=== PATIENT | female | born 1990 | race African-American/Black ===

== ENCOUNTER 2017-09-23 13:30 | Emergency (ER) | payer SELFPAY | END 2017-09-23 16:30 | disposition home or self-care (01) | LOC: ERS 13:30 | DX: J40 Bronchitis, not specified as acute or chronic (principal); J34.89 Other specified disorders of nose and nasal sinuses; I10 Essential (primary) hypertension; F17.210 Nicotine dependence, cigarettes, uncomplicated; Z71.6 Tobacco abuse counseling | CPT/HCPCS: 99406 ==

== ENCOUNTER 2017-10-03 19:30 | Emergency (ER) | payer SELFPAY | END 2017-10-03 21:05 | disposition home or self-care (01) | LOC: ERS 19:30 | DX: T19.2XXA Foreign body in vulva and vagina, initial encounter (principal); I10 Essential (primary) hypertension; F17.210 Nicotine dependence, cigarettes, uncomplicated | CPT/HCPCS: 99283 ==

== ENCOUNTER 2018-01-28 16:05 | Emergency (ER) | payer MEDICAID, SELFPAY ==
[2018-01-28 17:32] LABS: Bilirubin Negative (Negative); Blood, Urine Negative (Negative); Clarity CLOUDY (Clear); Glucose, Urine (Dipstick) Negative (Negative); Leukocyte Moderate (Negative); Nitrite Negative (Negative); Protein, Urine (Dipstick) Negative (Neg-Trace); Specific Gravity, Urine 1.019 (1.002-1.036); pH, Urine 6.5 (5.0-9.0)
[2018-01-28 17:34] LABS: Bacteria/HPF 2+ HPF (None Seen); Hyaline Casts/LPF 0-3 HYALINE CAST LPF (0-3 Hyaline); Pathc Cast-AUWi Flag 0.72 (0-2.49); WBC/HPF 21-50 HPF (0-3)
[2018-01-28 17:35] LABS: Pregnancy Test - Urine (BHCG) POSITIVE (Negative); Pregu Control Background? CLEAR/WHITE (CLR/WHITE); Pregu Control Bar Appear? YES (CONTROL BAR); Specific Gravity 1.019 (1.002-1.036)
== END 2018-01-28 18:07 | disposition home or self-care (01) ==
LOC: ERS 16:05
DX: O99.321 Drug use complicating pregnancy, first trimester (principal); F14.10 Cocaine abuse, uncomplicated; O23.41 Unspecified infection of urinary tract in pregnancy, first trimester; O99.331 Smoking (tobacco) complicating pregnancy, first trimester; F17.210 Nicotine dependence, cigarettes, uncomplicated; Z3A.12 12 weeks gestation of pregnancy
CPT/HCPCS: 81003; 81015; 81025; 87804; 99283

== ENCOUNTER 2018-07-14 16:02 | Day surgery (SDC) | payer OTHER ==
[2018-07-14 17:00] VITALS: BMI 40.2
[2018-07-14 17:16] LABS: Bilirubin Negative (Negative); Blood, Urine Small (Negative); Clarity CLEAR (Clear); Glucose, Urine (Dipstick) Negative (Negative); Leukocyte Negative (Negative); Nitrite Negative (Negative); Protein, Urine (Dipstick) Negative (Neg-Trace); pH, Urine 6.5 (5.0-9.0)
[2018-07-14 17:18] LABS: Bacteria/HPF None Seen HPF (None Seen); Hyaline Casts/LPF 4-6 HYALINE CAST LPF (0-3 Hyaline); Pathc Cast-AUWi Flag 0.81 (0-2.49); Squamous Epithelial 0-3 HPF (0-3); WBC/HPF 0-3 HPF (0-3)
[2018-07-14 17:24] LABS: Urine Culture Reflex No No
[2018-07-14 17:26] LABS: Medtox Reader # READER 4; Phencyclidine (PCP) Not Detected (NotDetected); THC/Cannabinoid Screen Not Detected (NotDetected)
[2018-07-14 17:27] LABS: Amphetamine Not Detected (NotDetected); Barbiturates Screen Not Detected (NotDetected); Benzodiazepine Screen Not Detected (NotDetected); Cocaine Metabolite Screen Detected (NotDetected); Medtox Control Line Valid? VALID (VALID); Methadone Not Detected (NotDetected); Methamphetamine Not Detected (NotDetected); Opiate Screen Not Detected (NotDetected); Oxycodone Screen Not Detected (NotDetected); Tricyclic Screen Not Detected (NotDetected)
[2018-07-14 17:40] LABS: FFN Internal QC Analyzer PASS (PASS); FFN Internal QC Cassette PASS (PASS); Fetal Fibronectin Negative (Negative)
--- NOTE | 2018-07-14 23:48 | ER ---
DATE OF SERVICE: 07/14/2018 PRIMARY LABORATORY ASSOCIATE: None. HISTORY OF PRESENT ILLNESS: The patient is a 27-year-old, G4, P3, female, who is reporting a about 7-1/2 months, presenting to Labor and Delivery with contractions. She reports that she has had her three other children premature at least a month or two premature, and feels like she is in labor now. The patient reports she has been having abdominal tightness, more pelvic tightness, and pressure about every 4 to 5 minutes at 5:30 this morning, and reports the pain is 8/10. The patient denies cramps, upper abdominal or back pain. She does have some nausea and vomiting, and reports positive movement. The patient reports overall fatigue, but denies fever or congestion. She denies neck pain or sore throat or vision changes. She denies heat or cold intolerance or skin changes. She denies palpitations or chest pain. Does report lower extremity swelling. Reports baseline shortness of breath with cough. Denies reports of abdominal pain and cramping. Denies discharge or bleeding. Denies overall weakness, muscle weakness, or joint weakness. The patient does report headaches on occasion. Denies skin rashes. Denies easy bruises. The patient at 30 weeks based on . PAST MEDICAL HISTORY: History of labor. PAST SURGICAL HISTORY: Cholecystectomy. MEDICATIONS: None. ALLERGIES: NO KNOWN DRUG ALLERGIES. SOCIAL HISTORY: The patient does report positive tobacco use. Denies drug use. Reports recently moving about 2 weeks ago from [place], relocating here to family. Reports her last visit with her doctor was 2 weeks ago and has intentions of seeking obstetric care with [facility]. OBSTETRIC LABORATORY DATA: Unavailable. REVIEW OF SYSTEMS: Per HPI. PHYSICAL EXAMINATION: VITAL SIGNS: Blood pressure 125/72, heart rate of 88, and respiratory rate of 18. GENERAL: She appears to be in no acute distress. She is alert, oriented, cooperative, pleasant to interact with. HEAD: Normocephalic, atraumatic. LUNGS: Clear to auscultation bilaterally. HEART: Regular rate and rhythm. ABDOMEN: Soft, nontender. EXTREMITIES: Nontender, nonedematous. CERVIX: Fingertip, 50% effaced, -3 station. heart tracing and NST performed for abdominal pain and , baseline is noted to be in the 130s with moderate long-term variability, positive 15 x 15 accelerations, no decelerations. Tocometer is not picking up any contraction pattern. fibronectin collected and negative. Urine drug screen positive for cocaine. Urinalysis, specific gravity of 1.010, negative protein and glucose, positive for ketones, small for blood, nitrite negative, leukocyte esterase negative, white blood cells negative, squamous cells negative, no bacteria seen. ASSESSMENT AND PLAN: The patient is a 27-year-old female with an intrauterine reported at about 30 weeks gestation for the patient, presenting with abdominal pain. There is no evidence of labor at this time with a closed cervix, negative fibronectin, and no consistent contraction pattern seen on her heart and tocometer tracing. We did discuss her positive cocaine results on drug screen, which she admits to handling cocaine, but has not used it, but reports that she does handle it with the intention of making money. The patient, at that time, also reported that she left [facility] for this reason and hopes to get away from it. We spent about 10 minutes discussing her situation and counseling her on the importance of committing and being diligent from removing herself from that environment. We also encouraged the patient to seek further training as she just has a high school diploma, so that she can qualify for a better paying job than what she otherwise could obtain through legal route. The patient has been introduced to the family medicine residency program and an effort to establish care with them. There is no evidence of labor at this time, and the patient is being discharged home. Fetus is category 1 tracing and reactive NST. Job ID: [id number]
== END 2018-07-14 19:00 | disposition home or self-care (01) ==
LOC: L&D/OP 16:02
PROVIDERS: ATTEND Obstetrics & Gynecology
DX: O47.1 False labor at or after 37 completed weeks of gestation (principal); O99.333 Smoking (tobacco) complicating pregnancy, third trimester; F17.200 Nicotine dependence, unspecified, uncomplicated; Z3A.30 30 weeks gestation of pregnancy; Z90.49 Acquired absence of other specified parts of digestive tract; Z87.51 Personal history of pre-term labor
CPT/HCPCS: 51701; 59025; 80306; 81001; 82731; 99284

== ENCOUNTER 2018-07-30 18:36 | Day surgery (SDC) | payer OTHER ==
[2018-07-30 19:13] VITALS: BMI 37.6
[2018-07-30] MEDS ORDERED: Betamet Acet/Betamet Na Ph 30 MG/5 ML VIAL IM SCH (19:15)
[2018-07-30] MEDS ORDERED: Azithromycin 1,000 MG in Sodium Chloride 0.9% 500 ML IVPB SCH (19:30)
--- NOTE | 2018-07-30 19:57 | PDOC.FPROB ---
Addendum entered and electronically signed by Nadiya Stone MD 07/30/18 21: 17: Upper level addendum: Pt is a 27 yo female @ 34.4 by LMP/1T US (per pt history) with history of cocaine abuse and poor care evaluated for PPROM. 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 Sterile spec performed which showed large amount of pooling in vaginal vault. Cervix closed. No lesions/bleeding. Scant discharge. Infectious workup started. Cat I strip/no contractions. Will order 1T labs. GBS prophylaxis and Steroids given. Will order BPP/Growth. Will attempt to request records from pt's previous OB provider. Will arrange transfer due to NICU being at capacity. Original Note: FMR OB H&P: HPI - History of Present Illness Chief Complaint: "water broke" Indentification: History of Present Illness: 27yo at 34.3w EGA by LMP and 1TUS (by her hx, no documentation available ) presents for evaluation of ruptured membranes. Pt was in HEB 30min prior to presentation when she noticed a persistent leakage of clear fluid. Pt states she is positve she was not urinating and that a large volume of liquid continued to leak out over several minutes soaking her pants. Otherwise pt reports to be doing well. Denies vaginal bleeding, no discharge, reports non painful contractions every 30-60min and reports good mvmt. FMR OB H&P: Current - Care : 5 Para: [id number] Gestational age: 34.3w by hx of LMP and 1TUS(pt decent historian) - OB Labs Blood type: unknown RH: unknown Antibody Screen: unknown HIV: unknown RPR: unknown HepBsAg: unknown Quad screen: unknown Urine drug screen: positive (At last triage 1 week ago, +cocaine.) FMR OB H&P: History - Past Medical History PMH: sickle cell trait - OB History OB History: 3 vaginal deliveries - Surgical History Sx History: cholecystectomy - Social History Social History: Smokes 1 pack per day, denies alcohol and drugs. Endorses dealing drugs but not using. Tested positive for cocaine 1 week ago by UDS - Family History Family History: DM FMR OB H&P: Medications - Current Home Medications: Medication Instructions Recorded Confirmed Type 21/Iron Fu/Folic Acid 1 tablet PO DAILY 07/30/18 07/30/18 History [ Complete Caplet] Allergies/Adverse Reactions: Allergies Allergy/AdvReac Type Severity Reaction Status Date / Time No Known Drug Allergies Allergy Verified 07/30/18 19:14 FMR OB H&P: ROS - Review of Systems General: denies: fever/chills, fatigue ENT: denies: nasal congestion, rhinorrhea Cardiovascular: denies: chest pain, palpitation Respiratory: denies: cough, congestion, shortness of breath Gastrointestinal: denies: abdominal pain, indigestion Genitourinary (Female): denies: incontinence, dysuria Musculoskeletal: denies: pain, stiffness Neurologic: denies: numbness, syncope, seizures Integumentary: denies: rash, lesions Endocrine: denies: cold intolerance, heat intolerance Hematologic/Lymphatic: denies: prolonged or excessive bleeding Psychological: denies: depression, anxiety FMR OB H&P: Vital Signs - Maternal Vital signs: reviewed and WNL - Heart Tones Baseline: 140 Variability: moderate Category: category 1 FMR OB H&P: Physical Exam - Physical Exam General: NAD, awake, alert and oriented HEENT: EOMI, grossly normal vision, grossly normal hearing Neck: supple, trachea midline Chest: non-tender to palpation Breast: symmetric Heart: RRR, normal S1/S2 General: CTAB, no respiratory distress Abdomen: soft, gravid Musculoskeletal: pulses present, no atrophy Neurological: no tremor, no focal deficit Skin: no rash, good tugor Lymphatic: no purpura, no petechia Psychiatric: intact recent and remote memory, normal mood and affect - Pelvic Exam Vulva: normal hair distribution, no blood Deviation from normal: pooling of clear fluid inferior to cervical os, fluid leaking from os SVE: cervical os closed, no bleeding, no lesions FMR OB H&P: A/P - Problem List (1) Polysubstance abuse Status: Acute Code(s): F19.10 - OTHER PSYCHOACTIVE SUBSTANCE ABUSE, UNCOMPLICATED (2) PROM (premature rupture of membranes) Status: Acute Code(s): O42.90 - NATY ROM, 7TH0 BETW RUPT & ONST LABR, UNSP WEEKS OF GEST Qualifiers: PROM onset of labor timing: onset of labor more than 24 hours following rupture PROM gestational age: full term Qualified Code(s): O42.12 - Full- term premature rupture of membranes, onset of labor more than 24 hours following rupture Comment: ROM on 03/08 no s/s of infection today Discussion: PPROM in a 27yo at 34.3w EGA A- Pt hx and exam highly suspicious of ruptured membranes. Pt has no recollection of detailed care and is unsure of where she went in [place] for her care. No labwork is currently available. By hx course has been uncomplicated. 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 Lauren and Bertha I agree with the History, Examination, Assessment and Plan documented above with any addition or exceptions noted below. 27 yo female at 34.3 wks presents for evaluation of ROM Patient with poor care, presents for evaluation of ROM at 1830 today. No VB. +FM. Reports use of cocaine throughout . Past history of PPROM and PTD x 2. No use of 17-OHP this . VS reviewed. FHT reactive. No contractions. SVE: pooling. Os visually closed. No blood. Swabs taken. 1. PPROM at 34.3 wks: Start GBS ppx (status unknown). FLM steroids started. Infectious workup pending. Cephalic. EFW = 2479g. BPP 12/02. ANDRY remains WNL at 17 cm. AMNIsure positive. Unable to keep patient in hospital due to over capacity of NICU. Patient to be transferred to [place]. Patient not currently in active labor. 2. sIUP: No records available. Last seen by OB provider in 2T. OB labs ordered. 3. Iron def anemia: Will need supplemental iron. Risk for pp complications. 4. Cocaine use during : UDS positive. Will need CPS contacted. Will need urine and mec on . Likely cause of ROM. 5. hx of PPROM and PTD: Patient not on 17-ohp. Indicated in future pregnancies 6. BMI 38: Lifestyle modifications. Encourage breast feeding if patient will abstain from drug use. 7. GBS unknown: Swab pending. Started on Amp for ppx. 8. Incomplete care Transfer to [place] for management due to unavailable space in NICU. Gene
[2018-07-30 20:19] LABS: Amnisure Internal Control QC ACCEPTABLE (ACCEPTABLE); Amnisure Test RUPTURE DETECTED (No Rupture)
[2018-07-30 21:22] LABS: #Eosinphils 0.1 thou/uL (0.0-0.7); #Lymphocytes 1.2 thou/uL (1.20-3.40); #Monocytes 0.4 thou/uL (0.11-0.59); #Neutrophils 4.8 thou/uL (1.40-6.50); %Basophils 0.1 % (0.0-1.0); %Eosinophils 1.2 % (0.0-10.0); %Lymphocytes 18.3 % (21.0-51.0); %Monocytes 6.7 % (0.0-10.0); %Neutrophils 73.8 % (42.0-75.0); Hemoglobin 8.5 g/dL (12.0-16.0); Mean Corpuscular HGB CONC 32.1 g/dL (32.0-36.0); Mean Corpuscular Hemoglobin 24.4 pg (27.0-31.0); Mean Corpuscular Volume 76.1 fL (78.0-98.0); Mean Platelet Volume 7.4 fL (7.4-10.4); Platelet Count 200 thou/uL (130-400); RBC Distribution Width 14.6 % (11.5-14.5); Red Blood Cell (RBC) Count 3.47 mill/uL (4.20-5.40); White Blood Cell (WBC) Count 6.5 thou/uL (4.8-10.8)
[2018-07-30 21:29] LABS: Hemoglobin A1c 3.9 % (4.0-6.0)
--- NOTE | 2018-07-30 21:39 | ULT ---
ULTRASOUND OBSTETRICAL COMPLETE: 07/30/18 at 8:45 p.m. HISTORY: 27-year-old female with premature rupture of membranes at 34 weeks gestation. Evaluate weight, position and amniotic fluid volume. FINDINGS: number: Teague. lie: Vertex. Maternal cervix: Obscured. Placenta: Maternal right lateral. No placenta previa. Amniotic fluid volume: ANDRY = 17 cm. heart rate: 132 bpm The following anatomy is visualized, with no evidence of anomalies: Thoracic spine, sacrum, bladder, bilateral kidneys, C-spine, L-spine, four chamber heart, stomach. The rest of the anatomy is not well visualized. biometry: Head circumference (HC): 30.9 cm 34w 4d Biparietal diameter (BPD): 8.4 cm 33w 5d Abdominal circumference (AC): 30.8 cm 34w 6d Femur length (FL): 6.8 cm 34w 5d Average ultrasound age (AUA): 34w 3d Estimated date of delivery (SUNNY): 09/07/2018 Last menstrual period (LMP): 12/01/2017 Gestational age by LMP: 34w 3d Estimated weight (EFW): 2479 g +/- 367 g (5 lb. 7 oz +/- 13 oz). IMPRESSION: 1. Live third trimester intrauterine gestation. 2. Estimated gestational age of 34 weeks, 3 days. 3. Vertex lie. PARAG Grijalva POS: TPC
--- NOTE | 2018-07-30 21:40 | ULT ---
ULTRASOUND BIOPHYSICAL PROFILE: 07/30/18 at 8:46 p.m. HISTORY: 27-year-old female in third trimester with premature rupture of membranes at 34 weeks gesta tion. FINDINGS: breathin tone: 2 movement: 2 Amniotic fluid volume: 2 IMPRESSION: Biophysical profile score of 6/8, excluding the non-stress test. JN R POS: TPC
[2018-07-30 21:45] LABS: Bilirubin Small (Negative); Blood, Urine Small (Negative); Clarity CLEAR (Clear); Glucose, Urine (Dipstick) Negative (Negative); Leukocyte Negative (Negative); Nitrite Negative (Negative); Protein, Urine (Dipstick) Negative (Neg-Trace); Specific Gravity, Urine 1.013 (1.002-1.036); pH, Urine 6.5 (5.0-9.0)
[2018-07-30 21:47] LABS: Pathc Cast-AUWi Flag 3.67 (0-2.49); WBC/HPF 0-3 HPF (0-3)
[2018-07-30 21:53] LABS: Amphetamine Not Detected (NotDetected); Barbiturates Screen Not Detected (NotDetected); Benzodiazepine Screen Not Detected (NotDetected); Cocaine Metabolite Screen Detected (NotDetected); Medtox Control Line Valid? VALID (VALID); Medtox Reader # READER 4; Methadone Not Detected (NotDetected); Methamphetamine Not Detected (NotDetected); Opiate Screen Not Detected (NotDetected); Oxycodone Screen Not Detected (NotDetected); Phencyclidine (PCP) Not Detected (NotDetected); THC/Cannabinoid Screen Not Detected (NotDetected); Tricyclic Screen Not Detected (NotDetected)
[2018-07-30 21:55] LABS: Syphilis Antibody Nonreactive (Nonreactive); Syphilis Antibody Index 0.05 S/CO (<1.00 Non-Reactive)
[2018-07-30 21:56] LABS: Bacteria/HPF Rare-Few HPF (None Seen); Hyaline Casts/LPF 4-6 HYALINE CAST LPF (0-3 Hyaline)
[2018-07-30 22:04] LABS: ALT (SGPT) 12 U/L (8-55); AST (SGOT) 14 U/L (5-34); Albumin 3.1 g/dL (3.5-5.0); Alkaline Phosphatase 107 U/L (40-150); Anion Gap 8 mmol/L (10-20); BUN (Urea Nitrogen) Less than 4 mg/dL (7.0-18.7); Bilirubin, Total 0.5 mg/dL (0.2-1.2); Calc. Creatinine Clearance 210 mL/min (70-130); Calcium 8.9 mg/dL (7.8-10.44); Carbon Dioxide 25 mmol/L (22-29); Chloride 106 mmol/L (98-107); Estimated GFR-MDRD Greater than 90; Globulin 3.4 g/dL (2.4-3.5); Glucose 73 mg/dL (70-105); Potassium 3.4 mmol/L (3.5-5.1); Protein, Total 6.5 g/dL (6.0-8.3); Sodium 136 mmol/L (136-145)
[2018-07-30 22:45] LABS: HBSAg Index 0.28 S/CO (0-0.99); HIV (1/2) Antibody/Antigen Non-Reactive (NonReactive); HIV 1/2 INDEX 0.19 S/CO (<1.00); Hep B Surf Ag Non-Reactive S/CO (NonReactive); Hep C IgG Ab Non-Reactive (NonReactive); Hep C Index 0.15 S/CO (0-0.79)
[2018-07-30] MEDS ORDERED: AMPicillin 2 GM in Sodium Chloride 0.9% 100 ML IVPB SCH (23:59)
--- NOTE | 2018-07-31 12:18 | DIS ---
DATE OF ADMISSION: 07/30/2018 DATE OF DISCHARGE: 07/30/2018 DISCHARGE ATTENDING: Dianna Fernando MD. RESIDENT: Nadiya Stone MD, PGY-III. ADMITTING DIAGNOSES: 1. premature rupture of membranes. 2. intrauterine . 3. Poor care. 4. History of cocaine abuse. HISTORY OF PRESENT ILLNESS: The patient is a 27-year-old G5, P0-3-1-3 at 34.4 weeks by last menstrual period, consistent with first trimester sono per patient's history, who presented to Labor and Delivery with reported large gush of fluid 30 minutes prior to arrival, concerning for rupture of membranes. Sterile spec was performed, which showed a large amount of pooling in the vaginal vault. The patient's cervix was closed on exam with no lesions or bleeding. Scant discharge noted. AmniSure test was positive. An infectious workup was started to include Gonorrhea, Chlamydia, urinalysis and vaginitis panel. First trimester labs were ordered. GBS swab was obtained, and GBS prophylaxis was initiated. The patient was also received a dose of betamethasone prior to transfer for lung maturity. BPP and growth scans were performed. Growth scan did confirm the patient's dates and biophysical profile was 6/8 excluding the nonstress test which was reactive. Due to the inhouse NICU being at capacity, transfer was initiated, and ultimately, the patient was transferred to [facility] in [place]. DISCHARGE INSTRUCTIONS: 1. Location: [facility], [facility]. 2. Followup: The patient is to follow up . 3. Disposition: Stable. Job ID: [id number]
[2018-08-02 11:57] LABS: Chlamydia by PCR Not Detected (NotDetected); GC by PCR Not Detected (NotDetected)
== END 2018-07-30 23:25 | disposition short-term general hospital (02) ==
LOC: L&D/OP 18:36
PROVIDERS: ATTEND Student in an Organized Health Care Education/Training Program
DX: O42.913 Preterm premature rupture of membranes, unspecified as to length of time between rupture and onset of labor, third trimester (principal); O99.013 Anemia complicating pregnancy, third trimester; D50.9 Iron deficiency anemia, unspecified; D57.3 Sickle-cell trait; O99.323 Drug use complicating pregnancy, third trimester; F14.90 Cocaine use, unspecified, uncomplicated; O99.333 Smoking (tobacco) complicating pregnancy, third trimester; F17.210 Nicotine dependence, cigarettes, uncomplicated; O09.33 Supervision of pregnancy with insufficient antenatal care, third trimester; Z3A.34 34 weeks gestation of pregnancy; Z79.899 Other long term (current) drug therapy
CPT/HCPCS: 36415; 76815; 76819; 80053; 80306; 81003; 81015; 83036; 84112; 85025; 86762; 86780; 86803; 86850; 86900; 86901; 87077; 87081; 87086; 87340; 87389; 87480; 87510; 87660; 99285; J0290; J0456; J0702; J7050

== ENCOUNTER 2020-05-15 16:09 | Emergency (ER) | payer OTHER ==
[2020-05-15 16:32] LABS: #Eosinphils 0.2 thou/uL (0.0-0.7); #Lymphocytes 2.1 thou/uL (1.20-3.40); #Monocytes 0.3 thou/uL (0.11-0.59); #Neutrophils 3.8 thou/uL (1.40-6.50); %Basophils 0.5 % (0.0-1.0); %Eosinophils 2.8 % (0.0-10.0); %Lymphocytes 32.6 % (21.0-51.0); %Monocytes 4.9 % (0.0-10.0); %Neutrophils 59.2 % (42.0-75.0); Hemoglobin 11.7 g/dL (12.0-16.0); Mean Corpuscular HGB CONC 32.9 g/dL (32.0-36.0); Mean Corpuscular Hemoglobin 25.8 pg (27.0-31.0); Mean Corpuscular Volume 78.5 fL (78.0-98.0); Mean Platelet Volume 6.9 fL (7.4-10.4); Platelet Count 411 thou/uL (130-400); RBC Distribution Width 14.1 % (11.5-14.5); Red Blood Cell (RBC) Count 4.53 mill/uL (4.20-5.40); White Blood Cell (WBC) Count 6.4 thou/uL (4.8-10.8)
[2020-05-15] MEDS ORDERED: Acetaminophen 500 MG TAB ONE (17:11)
--- NOTE | 2020-05-15 17:59 | ULT ---
PELVIC ULTRASOUND: 05/15/20 HISTORY: Pelvic pain. Real time imaging of the pelvis was obtained both transabdominally as well as with an endovaginal pro be. This shows a uterus measuring 4.4 x 5.4 x 9 cm. Endometrium is in the 7 mm range. Right and left adnexa are normal in size and appearance. COLOR DOPPLER EVALUATION WITH SPECTRAL ANALYSIS: Normal flow is shown to both adnexa. A small involuting follicle is noted on the left ovary. IMPRESSION: Essentially unremarkable pelvic ultrasound. POS: OFF
== END 2020-05-15 18:45 | disposition home or self-care (01) ==
LOC: ERS 16:09
DX: O20.0 Threatened abortion (principal); O10.911 Unspecified pre-existing hypertension complicating pregnancy, first trimester; Z3A.01 Less than 8 weeks gestation of pregnancy; O99.331 Smoking (tobacco) complicating pregnancy, first trimester; F17.210 Nicotine dependence, cigarettes, uncomplicated
CPT/HCPCS: 36415; 76856; 81003; 81015; 84702; 85025; 86900; 86901

== ENCOUNTER 2020-10-13 11:47 | Inpatient (IN) | payer OTHER ==
[~2020-10-13 11:47] MED LIST: Iopamidol-370 76% 500 ML 1 ML ONE
[2020-10-13] MEDS ORDERED: Magnesium 2 GM/50 ML BAG (IN WATER) ONE ×2 (11:56→11:58)
[2020-10-13] MEDS ORDERED: Rocuronium Bromide 10 MG/ML (10ML VIAL) ONE (11:56)
[2020-10-13] MEDS ORDERED: Ondansetron PF 4 MG/2 ML Vial ONE (12:44)
[2020-10-13 12:59] LABS: #Eosinphils 0.2 thou/uL (0.0-0.7); #Lymphocytes 1.3 thou/uL (1.20-3.40); #Monocytes 0.6 thou/uL (0.11-0.59); #Neutrophils 4.2 thou/uL (1.40-6.50); %Basophils 0.6 % (0.0-1.0); %Eosinophils 3.2 % (0.0-10.0); %Lymphocytes 20.1 % (21.0-51.0); %Monocytes 8.8 % (0.0-10.0); %Neutrophils 67.1 % (42.0-75.0); Hemoglobin 11.6 g/dL (12.0-16.0); Mean Corpuscular HGB CONC 32.9 g/dL (32.0-36.0); Mean Corpuscular Volume 79.2 fL (78.0-98.0); Mean Platelet Volume 8.1 fL (7.4-10.4); Platelet Count 303 thou/uL (130-400); RBC Distribution Width 14.2 % (11.5-14.5); Red Blood Cell (RBC) Count 4.44 mill/uL (4.20-5.40); White Blood Cell (WBC) Count 6.3 thou/uL (4.8-10.8)
[2020-10-13 13:08] LABS: BHCG - Serum Negative (NEGATIVE); Pregs Control Background? CLEAR/WHITE (CLR/WHITE); Pregs Control Bar Appear? YES (CONTROL BAR)
[2020-10-13 13:11] LABS: Lactic Acid 1.2 mmol/L (0.5-2.2)
[2020-10-13 13:15] LABS: Acetaminophen Less than 6.0 mcg/mL (10.0-30.0); Alcohol Less than 10 mg/dL (Less than 10); Magnesium 2.2 mg/dL (1.6-2.6); Salicylate Less than 8.0 mg/dL (15.0-30.0)
[2020-10-13] MEDS ORDERED: levETIRAcetam 500 MG/100 ML PREMIX BAG ONE (13:23)
[2020-10-13 13:34] LABS: Troponin I Less than 0.010 ng/mL (< 0.028)
[2020-10-13] MEDS ORDERED: Aspirin 300 MG Suppository ONE (13:57)
[2020-10-13 17:39] VITALS: BMI 38.7
[2020-10-13 17:42] LABS: Bacteria/HPF None Seen HPF (None Seen); Bilirubin Negative (Negative); Blood, Urine 1+ (Negative); Clarity Clear (Clear); Glucose, Urine (Dipstick) Normal (Negative); Ketone, Urine Negative (Negative); Leukocyte Negative Leu/uL (Negative); Nitrite Negative (Negative); Protein, Urine (Dipstick) Negative (Neg-Trace); RBC/HPF 0-3 HPF (0-3); Specific Gravity, Urine 1.034 (1.002-1.036); Squamous Epithelial 0-3 HPF (0-3); Urobilinogen Normal mg/dL (Less than 2); WBC/HPF 0-3 HPF (0-3); pH, Urine 5.5 (5.0-9.0)
[2020-10-13 17:45] LABS: Urine Culture Reflex No No
[2020-10-13] MEDS ORDERED: Ondansetron PF 4 MG/2 ML Vial IVP PRN (17:45)
[2020-10-13] MEDS ORDERED: Ondansetron ODT 4 MG TAB SL PRN (17:45)
[2020-10-13 18:00] LABS: Amphetamine Not Detected (NotDetected); Barbiturates Screen Not Detected (NotDetected); Benzodiazepine Screen Not Detected (NotDetected); Cocaine Metabolite Screen Detected (NotDetected); Medtox Control Line Valid? VALID (VALID); Medtox Reader # READER 1; Methadone Not Detected (NotDetected); Methamphetamine Not Detected (NotDetected); Opiate Screen Not Detected (NotDetected); Oxycodone Screen Not Detected (NotDetected); Phencyclidine (PCP) Not Detected (NotDetected); THC/Cannabinoid Screen Not Detected (NotDetected); Tricyclic Screen Not Detected (NotDetected)
[2020-10-13 21:03] LABS: Troponin I Less than 0.010 ng/mL (< 0.028)
[2020-10-14 00:15] LABS: SARS-CoV-2 PCR by NAA Not Detected (NotDetected)
[2020-10-14] MEDS ORDERED: Loperamide HCl 2 MG CAP PO PRN (07:40)
[2020-10-14] MEDS ORDERED: Zolpidem Tartrate 5 MG TAB PO PRN (07:40)
[2020-10-14] MEDS ORDERED: Calcium Carbonate 500 MG ChewTAB PO PRN (07:40)
[2020-10-14] MEDS ORDERED: Cepastat Lozenges 1 LOZ PO PRN (07:40)
[2020-10-14] MEDS ORDERED: HYDROcodone/Acetaminophen 5/325 mg Tablet PO PRN (07:40)
[2020-10-14] MEDS ORDERED: Acetaminophen 500 MG TAB PO PRN (07:40)
[2020-10-14] MEDS ORDERED: Ondansetron ODT 4 MG TAB PO PRN (07:40)
[2020-10-14] MEDS ORDERED: Ondansetron PF 4 MG/2 ML Vial IVP PRN (07:40)
[2020-10-14] MEDS ORDERED: Loratadine 10 MG TAB PO PRN (07:40)
[2020-10-14] MEDS ORDERED: hydrALAZINE 20 MG/ML VIAL SLOW IVP PRN (07:40)
[2020-10-14] MEDS ORDERED: Sodium Chloride 0.65% Nasal 44 ML BOT EA NARE PRN (07:40)
[2020-10-14] MEDS ORDERED: GUAIFENESIN SF SOLN 200 MG/10 ML UDCUP PO PRN (07:40)
[2020-10-14] MEDS ORDERED: Bisacodyl 5 MG TAB PO PRN (07:40)
[2020-10-14] MEDS ORDERED: Senokot S 8.6-50 MG TAB PO PRN (07:40)
[2020-10-14] MEDS: Famotidine 20 MG TAB PO SCH ×2 (09:47→21:03)
[2020-10-14] MEDS: Prenatal Vitamin 1 TAB PO SCH (09:47)
[2020-10-15 06:30] LABS: #Eosinphils 0.2 thou/uL (0.0-0.7); #Lymphocytes 1.7 thou/uL (1.20-3.40); #Monocytes 0.6 thou/uL (0.11-0.59); #Neutrophils 2.1 thou/uL (1.40-6.50); %Eosinophils 4.9 % (0.0-10.0); %Lymphocytes 37.6 % (21.0-51.0); %Monocytes 12.1 % (0.0-10.0); %Neutrophils 44.5 % (42.0-75.0); Hemoglobin 11.3 g/dL (12.0-16.0); Mean Corpuscular HGB CONC 31.6 g/dL (32.0-36.0); Mean Corpuscular Hemoglobin 25.5 pg (27.0-31.0); Mean Corpuscular Volume 80.6 fL (78.0-98.0); Mean Platelet Volume 7.8 fL (7.4-10.4); Platelet Count 337 thou/uL (130-400); RBC Distribution Width 14.5 % (11.5-14.5); Red Blood Cell (RBC) Count 4.44 mill/uL (4.20-5.40); White Blood Cell (WBC) Count 4.6 thou/uL (4.8-10.8)
[2020-10-15 06:51] LABS: ALT (SGPT) 11 U/L (8-55); AST (SGOT) 12 U/L (5-34); Albumin 3.5 g/dL (3.5-5.0); Alkaline Phosphatase 80 U/L (40-110); Anion Gap 11 mmol/L (10-20); BUN (Urea Nitrogen) 11 mg/dL (7.0-18.7); Bilirubin, Total 0.2 mg/dL (0.2-1.2); Calc. Creatinine Clearance 156 mL/min (70-130); Calcium 8.2 mg/dL (7.8-10.44); Carbon Dioxide 23 mmol/L (22-29); Chloride 109 mmol/L (98-107); Globulin 3.5 g/dL (2.4-3.5); Glucose 91 mg/dL (70-105); Potassium 3.4 mmol/L (3.5-5.1); Sodium 140 mmol/L (136-145)
[2020-10-15] MEDS ORDERED: Potassium Chloride 20 MEQ TAB PO SCH (07:45)
[2020-10-15 08:08] VITALS: BP 105/56; TEMP 97.9
[2020-10-15] MEDS: Prenatal Vitamin 1 TAB PO SCH (09:45)
[2020-10-15] MEDS: Famotidine 20 MG TAB PO SCH (09:45)
== END 2020-10-15 12:58 | disposition home or self-care (01) | DRG 312 ==
LOC: ERS 11:47 → 2SE 14:56
PROVIDERS: ADMIT Internal Medicine; ATTEND Internal Medicine
DX: R55 Syncope and collapse (principal); G92 Toxic encephalopathy; F44.5 Conversion disorder with seizures or convulsions; Z20.822 Contact with and (suspected) exposure to COVID-19; F14.10 Cocaine abuse, uncomplicated; D64.9 Anemia, unspecified; F32.9 Major depressive disorder, single episode, unspecified; F17.210 Nicotine dependence, cigarettes, uncomplicated; F98.8 Other specified behavioral and emotional disorders with onset usually occurring in childhood and adolescence; E66.01 Morbid (severe) obesity due to excess calories; Z28.21 Immunization not carried out because of patient refusal; Z68.38 Body mass index [BMI] 38.0-38.9, adult; Z91.14 Patient's other noncompliance with medication regimen; Z90.49 Acquired absence of other specified parts of digestive tract
CPT/HCPCS: 36415; 36416; 51701; 70450; 70496; 70498; 70551; 71045; 80053; 80306; 80307; 81001; 83605; 83735; 84100; 84443; 84484; 84702; 84703; 85025; 93005; 93306; 95816; 95819; 95957; 96365; 96375; J1953; J2405; J3475; Q9967; U0003; U0005

== ENCOUNTER 2024-12-21 19:28 | Emergency (ER) | payer OTHER ==
[2024-12-21] MEDS ORDERED: Boostrix 0.5 ML (Tdap) VIAL (>/=7 yrs of age) ONE (19:47)
[2024-12-21 19:48] LABS: #Basophils Less than 0.03 10x3/uL (0.0-0.2); #Eosinophils 0.18 10x3/uL (0.0-0.7); #Monocytes 0.43 10x3/uL (0.11-0.59); #Neutrophils 2.97 10x3/uL (1.40-6.50); %Basophils 0.4 % (0.0-1.0); %Eosinophils 3.4 % (0.0-10.0); %Lymphocytes 30.8 % (21.0-51.0); %Monocytes 8.2 % (0.0-10.0); %Neutrophils 57.0 % (42.0-75.0); Hematocrit 33.0 % (36.0-47.0); Hemoglobin 10.4 g/dL (12.0-16.0); Mean Corpuscular Hemoglobin 24.7 pg (27.0-31.0); Mean Corpuscular Volume 78.4 fL (78.0-98.0); Platelet Count 305 10x3/uL (130-400); Red Blood Cell (RBC) Count 4.21 mill/uL (4.20-5.40); White Blood Cell (WBC) Count 5.22 10x3/uL (4.8-10.8)
[2024-12-21 20:07] LABS: Anion Gap 12 mmol/L (10-20); BUN (Urea Nitrogen) 8 mg/dL (7.0-18.7); Calc. Creatinine Clearance 0 mL/min (70-130); Calcium 8.4 mg/dL (7.8-10.44); Carbon Dioxide 18 mmol/L (22-29); Chloride 112 mmol/L (98-107); Glucose 85 mg/dL (70-105); Potassium 4.0 mmol/L (3.5-5.1); Sodium 138 mmol/L (136-145)
[2024-12-21 21:07] LABS: BHCG - Serum Negative (NEGATIVE); Pregs Control Background? CLEAR/WHITE (CLR/WHITE); Pregs Control Bar Appear? YES (CONTROL BAR)
[2024-12-21] MEDS ORDERED: HYDROcodone/Acetaminophen 5/325 mg Tablet ONE (22:30)
== END 2024-12-21 22:46 | disposition home or self-care (01) ==
LOC: ERS 19:28
DX: S83.91XA Sprain of unspecified site of right knee, initial encounter (principal); I10 Essential (primary) hypertension; F17.210 Nicotine dependence, cigarettes, uncomplicated; F17.290 Nicotine dependence, other tobacco product, uncomplicated; Z23 Encounter for immunization; W07.XXXA Fall from chair, initial encounter
CPT/HCPCS: 36415; 80048; 84703; 85025; 90471; 90715; 96374; J3010